=== PATIENT | male | born 1955 | race Caucasian/White ===

== ENCOUNTER 2016-09-14 05:55 | Day surgery (SDC) | payer OTHER ==
[2016-09-14] MEDS ORDERED: Lactated Ringers 1,000 ML IV SCH (06:30)
[2016-09-14 08:23] VITALS: PULSE 59
[2016-09-14 08:50] VITALS: BP 152/88; O2SAT 96
--- NOTE | 2016-09-14 10:31 | OP ---
SURGERY DATE/TIME: 09/14/2016709 PREOPERATIVE DIAGNOSIS: Screening colonoscopy. POSTOPERATIVE DIAGNOSIS: Normal colon. PROCEDURE: Colonoscopy. SURGEON: Ean Villarreal M.D. ANESTHESIA: MAC by Josh Mason CRNA. ESTIMATED BLOOD LOSS: None. SPECIMENS: None. DESCRIPTION OF PROCEDURE: After informed written consent was obtained, the patient was taken to the endoscopy suite. He underwent monitored anesthesia and digital rectal exam showed normal sphincter tone and no internal lesions. The scope was inserted in the rectum and sequentially the entire colonic mucosa was traversed. The level of cecum was reached and verified with direct visualization of ileocecal valve. Upon withdrawal careful mucosal inspection revealed no gross mucosal abnormalities. Prior to withdrawal retroflexion was performed and was within normal limits. The scope was removed and the patient was transferred to the recovery room in excellent condition.
[2016-09-14] MEDS ORDERED: DIPRIVAN 200 MG/20 ML IV ONE (12:00)
[2016-09-14] MEDS ORDERED: Ketamine HCl 50 MG/ML IV ONE (12:00)
== END 2016-09-14 08:40 | disposition home or self-care (01) ==
LOC: SDC 05:55
PROVIDERS: ATTEND Family Medicine
PROC: 0DJD8ZZ Inspection of Lower Intestinal Tract, Via Natural or Artificial Opening Endoscopic (ICD-10-PCS; principal; 2016-09-14)
DX: Z12.11 Encounter for screening for malignant neoplasm of colon (principal)
CPT/HCPCS: 00810; J2704

== ENCOUNTER 2023-05-12 14:17 | Emergency (ER) | payer MEDICARE ==
[2023-05-12 15:09] VITALS: RESP 18; TEMP 99.2
[2023-05-12 15:17] VITALS: PULSE 76
[2023-05-12 15:34] LABS: Absolute Neutrophil Ct (ANC) 3.77 x10^3/uL (1.4-6.9); BASOPHIL % 0.7 % (0.0-0.4); Basophil (Absolute #) 0.04 x10^3/uL (0-0.4); Eosinophil % 1.6 % (0.00-5.0); Eosinophil (Absolute #) 0.09 x10^3/uL (0-0.5); Hematocrit 43.8 % (42-50); Hemoglobin 14.6 g/dL (12.5-18.0); IMMATURE GRAN # 0.03 x10^3u/L (0.00-0.03); IMMATURE GRAN % 0.5 % (0.00-0.4); Lymphocyte (Absolute #) 1.28 x10^3/uL (1.0-4.6); Lymphocytes % 23.1 % (24.0-44.0); Mean Cell Volume 87.4 fL (78-100); Mean Corpuscular Hemoglobin 29.1 pg (26-32); Mean Corpuscular Hgb Concent. 33.3 g/dL (32-36); Mean Platelet Volume 9.9 fL (7.5-11.0); Monocyte (Absolute #) 0.32 x10^3/uL (0.0-1.3); Monocytes % 5.8 % (0.0-12.0); Neutrophil % 68.3 % (36.0-66.0); Platelet Count 173 x10^3/uL (150-450); Red Blood Count 5.01 x10^6/uL (4.1-5.6); Red Cell Distribution Width 12.7 % (11.5-14.0); White Blood Count 5.5 x10^3/uL (4.0-10.5)
--- NOTE | 2023-05-12 15:45 | ERPHSYRPT ---
- History of Present Illness Time Seen by Provider: 05/12/23 15:42 Source: patient Exam Limitations: no limitations Patient Subjective Stated Complaint: pt here for palpitations off and on for a month now, with some lightheadedness, Triage Nursing Assessment: pt alert, resp easy, skin w/d/p. abd soft, no edema . moves all ext well. 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 Mr. Goldstein is a 68-year-old male with significant past medical history of hypothyroidism hyperlipidemia has off and on for last 6 months having a palpitation associated with dizziness. Does palpitation last for few minutes. At that time patient gets lightheaded and dizzy. Patient has tried to call his primary care physician for last few months but he is not able to get in. His palpitation got worse in last 2 3 days so he came to the emergency room today. When he came to the emergency room he was not having any palpitation. He is also denying any shortness of breath chest pain nausea vomiting or diarrhea. Patient also has obstructive sleep apnea but he is not wearing his machine because he ran out of his machine supply. Timing/Duration: week(s) Activities at Onset: none Severity of Pain-Max: none Severity of Pain-Current: none Modifying Factors: Improves With: nothing Nitro Today/Relief: no nitro taken today Aspirin Treatment Today: no aspirin today Associated Symptoms: denies symptoms Prior Chest Pain/Cardiac Workup: no prior chest pain Allergies/Adverse Reactions: No Known Drug Allergies Allergy (Verified 05/12/23 15:09) Home Medications: Pravastatin Sodium 10 mg [Pravachol 10 MG] 40 mg PO DAILY 07/21/12 [History] Synthroid 150 Mcg 1 tab PO DAILY 07/21/12 [History] Aspirin 1 tab PO DAILY 09/13/16 [History] Hx Tetanus, Diphtheria Vaccination/Date Given: No (unsure) Hx Influenza Vaccination/Date Given: No Hx Pneumococcal Vaccination/Date Given: No Immunizations Up to Date: Yes Travel Risk - International Travel Have you traveled outside of the country in past 3 weeks: No - Coronavirus Screening Are you exhibiting any of the following symptoms?: No - Vaccine Status Have you recieved a Covid-19 vaccination: Yes Erosion Control Specialist: Unknown - Vaccination Dates Date of 2cond Vaccination (if applicable): 2020 Dates if Unknown: ? - Review of Systems Constitutional: No Fever, No Chills Eyes: No Symptoms Ears, Nose, & Throat: No Symptoms Respiratory: No Cough, No Dyspnea Cardiac: Palpitations, No Chest Pain, No Edema, No Syncope Abdominal/Gastrointestinal: No Abdominal Pain, No Nausea, No Vomiting, No Diarrhea Genitourinary Symptoms: No Dysuria Musculoskeletal: No Back Pain, No Neck Pain Skin: No Rash Neurological: No Dizziness, No Focal Weakness, No Sensory Changes Psychological: No Symptoms Endocrine: No Symptoms All Other Systems: Reviewed and Negative - Past Medical History Neurological History: No Pertinent History ENT History: Cataracts Cardiac History: High Cholesterol Respiratory History: No Pertinent History Endocrine Medical History: Hypothyroidism Musculoskeletal History: No Pertinent History GI Medical History: No Pertinent History History: No Pertinent History Psycho-Social History: No Pertinent History - Past Surgical History Past Surgical History: Yes Neuro Surgical History: No Pertinent History Cardiac: Cardiac Catheterization Respiratory: No Pertinent History Gastrointestinal: No Pertinent History Genitourinary: No Pertinent History Musculoskeletal: No Pertinent History Male Surgical History: No Pertinent History Other Surgical History: sinus surg and right cataract removed - Social History Smoking Status: Former smoker Exposure to second hand smoke: No Drug Use: none Patient Lives Alone: No - Nursing Vital Signs Nursing Vital Signs: Initial Vital Signs Temperature 99.2 F 05/12/23 15:08 Pulse Rate 70 05/12/23 15:08 Respiratory Rate 18 05/12/23 15:08 Blood Pressure 157/94 05/12/23 15:08 O2 Sat by Pulse Oximetry 92 L 05/12/23 15:08 Pain Scale Pain Intensity 0 - Physical Exam General Appearance: no apparent distress, alert Eye Exam: PERRL/EOMI, eyes nml inspection Ears, Nose, Throat Exam: normal ENT inspection, moist mucous membranes Neck Exam: normal inspection, non-tender, supple Respiratory Exam: normal breath sounds, lungs clear, No respiratory distress Cardiovascular Exam: regular rate/rhythm, normal heart sounds, No edema Gastrointestinal/Abdomen Exam: soft, No tenderness, No mass Back Exam: normal inspection, No CVA tenderness, No vertebral tenderness Extremity Exam: normal inspection, normal range of motion Neurologic Exam: alert, oriented x 3, cooperative, normal mood/affect, nml cerebellar function, sensation nml, No motor deficits Skin Exam: normal color, warm, dry Lymphatic Exam: No adenopathy SpO2: 92 - Course Nursing assessment & vital signs reviewed: Yes EKG Interpreted by Me: Sinus Rhythm Rhythm Strip: Normal Sinus Rhythm Ordered Tests: Active Orders 24 hr Category Date Time Status Account Resolution Specialist STAT Care 05/12/23 15:18 Active EKG-ER Only STAT Care 05/12/23 15:18 Active CHEST 2 VIEWS (PA AND LAT) Stat Exams 05/12/23 15:18 Taken CBC W DIFF Stat Lab 05/12/23 15:30 Completed CMP Stat Lab 05/12/23 15:30 Completed MAGNESIUM Stat Lab 05/12/23 15:30 Completed NT PRO BNPII Stat Lab 05/12/23 15:30 Completed TROPONIN Q4H Lab 05/12/23 15:30 Received TROPONIN Q4H Lab 05/12/23 19:30 Ordered TROPONIN Q4H Lab 05/12/23 23:30 Ordered Holter Monitor Scan-RT ASORD RT 05/12/23 16:13 Active Lab/Rad Data: Laboratory Result Diagrams 05/12/23 15:30 05/12/23 15:30 Laboratory Results 05/12/23 05/12/23 Range/Units 15:30 15:30 WBC 5.5 (4.0-10.5) x10^3/uL RBC 5.01 (4.1-5.6) x10^6/uL Hgb 14.6 (12.5-18.0) g/dL Hct 43.8 (42-50) % MCV 87.4 (78-100) fL MCH 29.1 (26-32) pg MCHC 33.3 (32-36) g/dL RDW 12.7 (11.5-14.0) % Plt Count 173 (150-450) x10^3/uL MPV 9.9 (7.5-11.0) fL Gran % 68.3 H (36.0-66.0) % Immature Gran % (Auto) 0.5 H (0.00-0.4) % Nucleat RBC Rel Count 0.0 (0.00-0.1) % Eos # (Auto) 0.09 (0-0.5) x10^3/uL Immature Gran # (Auto) 0.03 (0.00-0.03) x10^3u/L Absolute Lymphs (auto) 1.28 (1.0-4.6) x10^3/uL Absolute Monos (auto) 0.32 (0.0-1.3) x10^3/uL Absolute Nucleated RBC 0.00 (0.00-0.01) x10^3u/L Lymphocytes % 23.1 L (24.0-44.0) % Monocytes % 5.8 (0.0-12.0) % Eosinophils % 1.6 (0.00-5.0) % Basophils % 0.7 (0.0-0.4) % Absolute Granulocytes 3.77 (1.4-6.9) x10^3/uL Basophils # 0.04 (0-0.4) x10^3/uL Sodium 138 (137-145) mmol/L Potassium 3.9 (3.5-5.1) mmol/L Chloride 105 (98-107) mmol/L Carbon Dioxide 24 (22-30) mmol/L Anion Gap 13.4 (5-15) MEQ/L BUN 19 (9-20) mg/dL Creatinine 0.91 (0.66-1.25) mg/dL Estimated GFR 91.2 ML/MIN Glucose 152 H (74-106) mg/dL Calcium 9.1 (8.4-10.2) mg/dL Magnesium 2.0 (1.6-2.3) mg/dL Total Bilirubin 0.40 (0.2-1.3) mg/dL AST 31 (17-59) U/L ALT 34 (0-50) U/L Alkaline Phosphatase 118 (38-126) U/L NT-Pro-B Natriuret Pep 71.7 (<300) pg/mL Serum Total Protein 7.4 (6.3-8.2) g/dL Albumin 4.3 (3.5-5.0) g/dL - Progress Progress: unchanged Air Movement: good Blood Culture(s) Obtained: No Antibiotics given: No Counseled pt/family regarding: lab results, diagnosis, need for follow-up, rad results Medical Desision Making - Diagnostic Testing Diagnostic test were ordered, analyzed, and reviewed by me: Yes Radiological Interpretation: Reviewed by me - Risk of complications Low Risk: Low risk of morbidity from additional dx testing or treatment - Departure Departure Disposition: Home Clinical Impression: Palpitations with regular cardiac rhythm Condition: Stable Critical Care Time: No Referrals: GINNY STUART MD [Primary Care Provider] - Follow up with PCP 7 days Instructions: Arrhythmias (DC), Palpitations (DC) Additional Instructions: There is no recent change in her any of her medication. We have applied a Holter monitor which will take your 24-hour heart rhythm and rate for the next 2 weeks. Please call your primary care physician to have an appointment in the next 7 days. Please explain while making an appointment with the company secretary that he has Holter monitor put on and it needs to be reviewed. Discharge/Care Plan STEVEN PAN was seen on 05/12/23 in the Emergency Room. The patient was counseled regarding Diagnosis,Lab results, Imaging studies, need for follow up and when to return to the Emergency Room. Prescriptions given: Discharge Note I have spoken with the patient and/or caregivers. I have explained the patient's condition, diagnosis and treatment plan based on the information available to me at this time. I have answered the patient's and/or caregiver's questions and addressed any concerns. The patient and/or caregivers have as good understanding of the patient's diagnosis, condition and treatment plan as can be expected at this point. The vital signs have been stable. The patient's condition is stable and appropriate for discharge from the emergency department. The patient will pursue further outpatient evaluation with the primary care jillian martines or other designated or consulting physician as outlined in the discharge instructions. The patient and/or caregivers are agreeable to this plan of care and follow-up instructions have been explained in detail. The patient and/or caregivers have received these instruction. The patient/and or caregivers are aware that any significant change in condition or worsening of symptoms should prompt an immediate return to this or the closest emergency department or call 911.
[2023-05-12 15:57] LABS: ALBUMIN 4.3 g/dL (3.5-5.0); ANION GAP 13.4 MEQ/L (5-15); BILIRUBIN,TOTAL 0.4 mg/dL (0.2-1.3); Calcium 9.1 mg/dL (8.4-10.2); Creatinine 1 0.91 mg/dL (0.66-1.25); EST GLOMERULAR FILTRATION RATE 91.2 ML/MIN; NT PRO BNPII 71.7 pg/mL (<300); Potassium 3.9 mmol/L (3.5-5.1); Total Protein 7.4 g/dL (6.3-8.2)
[2023-05-12 16:06] VITALS: BP 132/77
[2023-05-12 16:17] VITALS: O2SAT 92
--- NOTE | 2023-05-12 21:15 | XRAY ---
Indication: Palpitations. Comparison: July 21, 2012 PA/lateral chest again hyperinflated with new minimal lingula discoid atelectasis/scarring. Remaining heart and lungs unremarkable. Bony thorax intact with osteopenia and mild degenerative changes.
== END 2023-05-12 16:33 | disposition home or self-care (01) ==
LOC: ED 14:17
DX: R00.2 Palpitations (principal); R42 Dizziness and giddiness; E78.5 Hyperlipidemia, unspecified; Z79.899 Other long term (current) drug therapy
CPT/HCPCS: 36415; 71046; 80053; 83735; 83880; 84484; 85025; 93005; 93041; 93225; 99283